=== PATIENT | female | born 1995 | race Caucasian/White ===

== ENCOUNTER 2020-01-09 23:13 | Emergency (ER) | payer BC ==
[2020-01-09 23:25] VITALS: RESP 18
[2020-01-09 23:56] LABS: Appearance,Urine Cloudy (Clear); Bacteria,Urine Rare /hpf; Bilirubin,Urine 1+ (Negative); Blood,Urine Negative (Negative); Color,Urine Dark Brown; Glucose,Urine (UA) Negative (Negative); Ketones,Urine Negative (Negative); Leukocyte Esterase,Urine Negative (Negative); Mucus,Urine Rare /hpf; Nitrite,Urine Positive (Negative); PH, Urine 7.5 (5.0-8.0); Protein,Urine Negative (Negative); RBC,Urine 2 /hpf (0-5); Specific Gravity,Urine 1.009 (1.001-1.035); Squamous Epithelial Cell,Urine 7 /hpf (0-4); WBC,Urine 10 /hpf (0-5)
--- NOTE | 2020-01-10 00:07 | ED ---
General Adult HPI - General Chief complaint: Recheck/Abnormal Lab/Rx Stated complaint: Back Pain, UTI Time Seen by Provider: 01/09/20 23:28 Source: patient Mode of arrival: ambulatory Limitations: no limitations - History of Present Illness Initial comments: This patient is 24-year-old woman who presents to be evaluated for a constellation of symptoms that includes low back pain, some dysuria, fevers and chills. She states her symptoms had started approximately a week ago. Symptoms were mild at first and she was working and not able to get in to be seen. She had been taking Azo which did help with these symptoms a little bit. She was seen in the clinic yesterday, told that she had urinary tract infection, and given prescription for Macrobid. She was able to get the prescription filled this morning and has taken one dose of the medication. She states that she is feeling just as bad and therefore presents for reevaluation here. -: days(s) Location: back Quality: aching Consistency: constant Improves with: none Worsens with: none Associated Symptoms: fever/chills Treatments Prior to Arrival: other - Related Data Previous Rx's Medication Instructions Recorded Cephalexin [Keflex] 500 mg PO Q6HR #28 cap 01/10/20 Allergies Allergy/AdvReac Type Severity Reaction Status Date / Time No Known Allergies Allergy Verified 01/09/20 23:25 Review of Systems ROS Statement: Those systems with pertinent positive or pertinent negative responses have been documented in the HPI. ROS Other: All systems not noted in ROS Statement are negative. Constitutional: Reports: fever, chills ENT: Denies: throat pain, congestion Respiratory: Denies: cough, dyspnea Cardiovascular: Denies: chest pain, palpitations Gastrointestinal: Denies: abdominal pain, nausea, vomiting, diarrhea, constipation Genitourinary: Reports: urgency, dysuria, frequency. Denies: hematuria, abnormal menses Musculoskeletal: Reports: back pain Skin: Denies: rash Neurological: Denies: headache, weakness, numbness Past Medical History Past Medical History: No Reported History History of Any Multi-Drug Resistant Organisms: None Reported Past Surgical History: Tonsillectomy Smoking Status: Current some day smoker Past Alcohol Use History: Occasional Past Drug Use History: None Reported General Exam Limitations: no limitations General appearance: alert, in no apparent distress Head exam: Present: atraumatic, normocephalic Eye exam: Present: normal appearance. Absent: scleral icterus, conjunctival injection ENT exam: Present: normal oropharynx Neck exam: Present: normal inspection Respiratory exam: Present: normal lung sounds bilaterally. Absent: respiratory distress, wheezes, rales, rhonchi, stridor Cardiovascular Exam: Present: regular rate, normal rhythm, normal heart sounds. Absent: systolic murmur, diastolic murmur, rubs, gallop GI/Abdominal exam: Present: soft. Absent: distended, tenderness, guarding, rebound, rigid, mass Extremities exam: Present: normal inspection, normal capillary refill. Absent: pedal edema, calf tenderness Back exam: Present: normal inspection. Absent: CVA tenderness (R), CVA tenderness (L), vertebral tenderness Neurological exam: Present: alert Skin exam: Present: warm, dry, intact, normal color. Absent: rash Course Vital Signs 01/09/20 01/10/20 23:21 00:57 Temperature 100.1 F H 101.6 F H Pulse Rate 104 H Respiratory 18 Rate Blood Pressure 122/80 O2 Sat by Pulse 99 Oximetry Medical Decision Making - Medical Decision Making Patient is a 24-year-old woman with fever, low back pain, urinary symptoms. The UA does show presence of 10 white blood cells, and this does not appear to be consistent with her degree of symptoms. I had discussion with her regarding possibility of STI mimicking urinary tract infection, and she does agree to getting the tests onto her urine and will take empiric Treatment. - Lab Data Result diagrams: 01/10/20 00:53 01/10/20 00:53 Lab Results 01/09/20 01/09/20 01/10/20 Range/Units 23:28 23:28 00:53 WBC 11.9 H (3.8-10.6) k/uL RBC 3.72 L (3.80-5.40) m/uL Hgb 11.6 (11.4-16.0) gm/dL Hct 34.3 (34.0-46.0) % MCV 92.2 (80.0-100.0) fL MCH 31.2 (25.0-35.0) pg MCHC 33.8 (31.0-37.0) g/dL RDW 12.0 (11.5-15.5) % Plt Count 228 (150-450) k/uL Neutrophils % 75 % Lymphocytes % 13 % Monocytes % 8 % Eosinophils % 1 % Basophils % 1 % Neutrophils # 8.9 H (1.3-7.7) k/uL Lymphocytes # 1.6 (1.0-4.8) k/uL Monocytes # 0.9 (0-1.0) k/uL Eosinophils # 0.1 (0-0.7) k/uL Basophils # 0.1 (0-0.2) k/uL Sodium (137-145) mmol/L Potassium (3.5-5.1) mmol/L Chloride (98-107) mmol/L Carbon Dioxide (22-30) mmol/L Anion Gap mmol/L BUN (7-17) mg/dL Creatinine (0.52-1.04) mg/dL Est GFR (CKD-EPI)AfAm (>60 ml/min/1.73 sqM) Est GFR (CKD-EPI)NonAf (>60 ml/min/1.73 sqM) Glucose (74-99) mg/dL Calcium (8.4-10.2) mg/dL Total Bilirubin (0.2-1.3) mg/dL AST (14-36) U/L ALT (4-34) U/L Alkaline Phosphatase (38-126) U/L C-Reactive Protein (<10.0) mg/L Total Protein (6.3-8.2) g/dL Albumin (3.5-5.0) g/dL Urine Color Dark Brown Urine Appearance Cloudy H (Clear) Urine pH 7.5 (5.0-8.0) Ur Specific Grover 1.009 (1.001-1.035) Urine Protein Negative (Negative) Urine Glucose (UA) Negative (Negative) Urine Ketones Negative (Negative) Urine Blood Negative (Negative) Urine Nitrite Positive H (Negative) Urine Bilirubin 1+ H (Negative) Urine Urobilinogen 4.0 (<2.0) mg/dL Ur Leukocyte Esterase Negative (Negative) Urine RBC 2 (0-5) /hpf Urine WBC 10 H (0-5) /hpf Ur Squamous Epith Cells 7 H (0-4) /hpf Urine Bacteria Rare H (None) /hpf Urine Mucus Rare H (None) /hpf Urine HCG, Qual Not Detected (Not Detectd) 09/14/20 Range/Units 00:53 WBC (3.8-10.6) k/uL RBC (3.80-5.40) m/uL Hgb (11.4-16.0) gm/dL Hct (34.0-46.0) % MCV (80.0-100.0) fL MCH (25.0-35.0) pg MCHC (31.0-37.0) g/dL RDW (11.5-15.5) % Plt Count (150-450) k/uL Neutrophils % % Lymphocytes % % Monocytes % % Eosinophils % % Basophils % % Neutrophils # (1.3-7.7) k/uL Lymphocytes # (1.0-4.8) k/uL Monocytes # (0-1.0) k/uL Eosinophils # (0-0.7) k/uL Basophils # (0-0.2) k/uL Sodium 132 L (137-145) mmol/L Potassium 3.8 (3.5-5.1) mmol/L Chloride 99 (98-107) mmol/L Carbon Dioxide 26 (22-30) mmol/L Anion Gap 7 mmol/L BUN 8 (7-17) mg/dL Creatinine 0.56 (0.52-1.04) mg/dL Est GFR (CKD-EPI)AfAm >90 (>60 ml/min/1.73 sqM) Est GFR (CKD-EPI)NonAf >90 (>60 ml/min/1.73 sqM) Glucose 102 H (74-99) mg/dL Calcium 8.5 (8.4-10.2) mg/dL Total Bilirubin 0.8 (0.2-1.3) mg/dL AST 83 H (14-36) U/L ALT 128 H (4-34) U/L Alkaline Phosphatase 152 H (38-126) U/L C-Reactive Protein 179.9 H (<10.0) mg/L Total Protein 6.3 (6.3-8.2) g/dL Albumin 3.3 L (3.5-5.0) g/dL Urine Color Urine Appearance (Clear) Urine pH (5.0-8.0) Ur Specific Grover (1.001-1.035) Urine Protein (Negative) Urine Glucose (UA) (Negative) Urine Ketones (Negative) Urine Blood (Negative) Urine Nitrite (Negative) Urine Bilirubin (Negative) Urine Urobilinogen (<2.0) mg/dL Ur Leukocyte Esterase (Negative) Urine RBC (0-5) /hpf Urine WBC (0-5) /hpf Ur Squamous Epith Cells (0-4) /hpf Urine Bacteria (None) /hpf Urine Mucus (None) /hpf Urine HCG, Qual (Not Detectd) Disposition Clinical Impression: Pyelonephritis Disposition: HOME SELF-CARE Condition: Fair Prescriptions: Cephalexin [Keflex] 500 mg PO Q6HR #28 cap Is patient prescribed a controlled substance at d/c from ED?: No Referrals: Celestino Cano MD [Primary Care Provider] - 1-2 days
[2020-01-10] MEDS ORDERED: cefTRIAXone 250 MG VIAL IM STA (00:21)
[2020-01-10] MEDS ORDERED: AZITHROMYCIN 250 MG TAB PO STA (00:21)
[2020-01-10 01:20] LABS: Basophils # (A) 0.1 k/uL (0-0.2); Basophils % (A) 1 %; Eosinophils # (A) 0.1 k/uL (0-0.7); Eosinophils % (A) 1 %; HCT 34.3 % (34.0-46.0); HGB 11.6 gm/dL (11.4-16.0); Lymphocytes # (A) 1.6 k/uL (1.0-4.8); Lymphocytes % (A) 13 %; MCH 31.2 pg (25.0-35.0); MCHC 33.8 g/dL (31.0-37.0); MCV 92.2 fL (80.0-100.0); Mean Platelet Volume 8.8; Monocytes # (A) 0.9 k/uL (0-1.0); Monocytes % (A) 8 %; Neutrophils # (A) 8.9 k/uL (1.3-7.7); Neutrophils % (A) 75 %; Platelet Count 228 k/uL (150-450); RBC 3.72 m/uL (3.80-5.40); WBC 11.9 k/uL (3.8-10.6)
[2020-01-10] MEDS ORDERED: HYDROcodone/APAP 5-325MG 1 EACH TAB PO STA (01:24)
[2020-01-10] MEDS ORDERED: SODIUM CHLORIDE 0.9% 1,000 ML IV ONE (01:24)
[2020-01-10] MEDS ORDERED: ACETAMINOPHEN TAB 325 MG TAB PO STA (01:24)
[2020-01-10 01:38] LABS: ALT 128 U/L (4-34); AST 83 U/L (14-36); African American GFR (CKD) >90 (>60 ml/min/1.73 sqM); Albumin 3.3 g/dL (3.5-5.0); Alkaline Phosphatase 152 U/L (38-126); Anion Gap 7 mmol/L; Blood Urea Nitrogen 8 mg/dL (7-17); Calcium 8.5 mg/dL (8.4-10.2); Carbon Dioxide 26 mmol/L (22-30); Chloride 99 mmol/L (98-107); Glucose 102 mg/dL (74-99); Non-African American GFR(CKD) >90 (>60 ml/min/1.73 sqM); Potassium 3.8 mmol/L (3.5-5.1); Sodium 132 mmol/L (137-145); Total Bilirubin 0.8 mg/dL (0.2-1.3); Total Protein 6.3 g/dL (6.3-8.2)
[2020-01-10 01:56] LABS: C Reactive Protein 179.9 mg/L (<10.0)
--- NOTE | 2020-01-10 02:57 | CT ---
EXAMINATION TYPE: CT abdomen pelvis w con DATE OF EXAM: 01/10/2020 COMPARISON: None HISTORY: Pelvic Pain CT DLP: 695.6 mGycm Automated exposure control for dose reduction was used. CONTRAST: Performed with IV Contrast, patient injected with 100 mL of Isovue 300. Lung bases are clear. There is no pleural effusion. Heart size is normal. There is no pericardial eff usion. There is small hiatal hernia. Liver spleen pancreas gallbladder appear normal. Bile ducts are not dil ated. Gallbladder is contracted. There is no adrenal mass. There is some heterogeneous enhancement of the right kidney. Right kidney i s larger than the left. Delayed images show patchy areas of decreased enhancement in the right renal cortex. There is also to centimeter focus of decreased enhancement posterior lower pole left kidney. There is no retroperitoneal adenopathy. Ureters are not dilated. Delayed images show normal renal exc retion. Bladder distends smoothly. There is no inguinal hernia. There is 5 x 3 cm fluid collection in the pel vis on the right side that could be ovarian cyst. Uterus is anteverted. There is 4 cm cystic fluid co llection in the pelvis anterior to the uterine fundus. There is no mesenteric edema. There is no ascites or free air. Appendix is posterior and appears norm al. There is no evidence of a bowel obstruction. The lumbar spine is intact. There is no compression fracture. Bony pelvis is intact. IMPRESSION: Patchy areas of decreased enhancement in both kidneys and more on the right side consistent with mult iple foci of pyelonephritis. No renal obstruction. Cystic pelvic masses consistent with bilateral ovarian cysts.
[2020-01-10] MEDS ORDERED: ACET/COD 300 MG/30 MG STARTER PACK 6 TAB BTL PO STA (03:15)
[2020-01-10 03:27] VITALS: BP 105/60; PULSE 80; TEMP 98.3
[2020-01-11 07:17] LABS: C. trachomatis,PCR Negative (Neg,Equiv); Chlamydia trachomatis Source Urine; N. gonorrhoeae,PCR Negative (Neg,Equiv); Neisseria Source Urine
== END 2020-01-10 03:47 | disposition home or self-care (01) ==
LOC: EC 23:13
DX: N12 Tubulo-interstitial nephritis, not specified as acute or chronic (principal); F17.200 Nicotine dependence, unspecified, uncomplicated
CPT/HCPCS: 36415; 80053; 85025; 86140; 81001; 81025; 87491; 87591; 74177; 99284; 96360; 96372; J0696; Q9967

== ENCOUNTER 2020-11-15 20:57 | Inpatient (IN) | payer BC ==
--- NOTE | 2020-11-16 00:37 | ED ---
Psych HPI - General Chief Complaint: Psychiatric Symptoms Stated Complaint: Mental Health Time Seen by Provider: 11/15/20 21:10 Source: patient, RN notes reviewed, old records reviewed Mode of arrival: ambulatory - History of Present Illness Initial Comments: This is a 21-year-old female to the ER for evaluation, patient has history of meth abuse coming in for suicidal thoughts severe compression, patient has severe depression but does not want to speak about MD Complaint: suicidal ideation, feels depressed -: days(s) Associated Psychiatric Symptoms: depression, suicidal ideation History of same: Yes Quality: constant Improves With: none Worsens With: none Context: not taking psychiatric medications, significant life stressor Associated Symptoms: denies other symptoms Treatments Prior to Arrival: placed on mental health hold If Self Harm: admits thoughts of self harm - Related Data Home Medications Medication Instructions Recorded Confirmed No Known Home Medications 11/15/20 11/15/20 Allergies Allergy/AdvReac Type Severity Reaction Status Date / Time No Known Allergies Allergy Verified 11/15/20 21:22 Review of Systems ROS Statement: Those systems with pertinent positive or pertinent negative responses have been documented in the HPI. ROS Other: All systems not noted in ROS Statement are negative. Past Medical History Past Medical History: No Reported History History of Any Multi-Drug Resistant Organisms: None Reported Past Surgical History: Tonsillectomy Past Psychological History: Anxiety, PTSD Smoking Status: Current every day smoker Past Alcohol Use History: Occasional Past Drug Use History: Heroin, Marijuana, Methamphetamine General Exam Limitations: no limitations General appearance: alert, in no apparent distress Head exam: Present: atraumatic, normocephalic, normal inspection Eye exam: Present: normal appearance, PERRL, EOMI. Absent: scleral icterus, conjunctival injection, periorbital swelling ENT exam: Present: normal exam, mucous membranes moist Neck exam: Present: normal inspection. Absent: tenderness, meningismus, lymphadenopathy Respiratory exam: Present: normal lung sounds bilaterally. Absent: respiratory distress, wheezes, rales, rhonchi, stridor Cardiovascular Exam: Present: regular rate, normal rhythm, normal heart sounds. Absent: systolic murmur, diastolic murmur, rubs, gallop, clicks GI/Abdominal exam: Present: soft, normal bowel sounds. Absent: distended, tenderness, guarding, rebound, rigid Extremities exam: Present: normal inspection, full ROM, normal capillary refill. Absent: tenderness, pedal edema, joint swelling, calf tenderness Back exam: Present: normal inspection Neurological exam: Present: alert, oriented X3, CN II-XII intact Psychiatric exam: Present: normal affect, normal mood Skin exam: Present: warm, dry, intact, normal color. Absent: rash Course Vital Signs 11/15/20 20:58 Temperature 97.9 F Pulse Rate 89 Respiratory 18 Rate Blood Pressure 120/82 O2 Sat by Pulse 100 Oximetry - Reevaluation(s) Reevaluation #1: 11/16/20 01:10 Medical record is reviewed Reevaluation #2: 11/16/20 01:10 Medically clear psychiatric evaluation Medical Decision Making - Medical Decision Making 24 female DF for psychiatric evaluation severely depressed, patient was seen by psychiatry will be admitted for psychiatric evaluation Disposition Clinical Impression: Acute psychosis, Depression, Suicidal ideation Disposition: TRANSFER TO PSYCH HOSP/UNIT Condition: Fair Is patient prescribed a controlled substance at d/c from ED?: No
[2020-11-16] MEDS ORDERED: MAG HYDROX/AL HYDROX/SIMETH 30 ML CUP PO PRN (00:57)
[2020-11-16] MEDS ORDERED: ACETAMINOPHEN TAB 325 MG TAB PO PRN (00:57)
[2020-11-16] MEDS ORDERED: MAGNESIUM HYDROXIDE 2,400 MG/10 ML CUP PO PRN (00:57)
[2020-11-16] MEDS ORDERED: HALOPERIDOL LACTATE 5 MG/ML 1 ML VIAL IM PRN (00:57)
[2020-11-16] MEDS ORDERED: LORazepam 2 MG/ML INJ IM PRN (00:57)
[2020-11-16] MEDS: LORazepam 1 MG TAB PO PRN ×2 (02:06→17:51)
[2020-11-16] MEDS: NICOTINE 21MG/24HR PATCH TRANSDERM SCH (09:35)
[2020-11-16] MEDS ORDERED: FLUoxetine HCL 20 MG CAP PO STA (12:03)
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
[2020-11-16] MEDS: QUEtiapine 50 MG TAB PO SCH (20:33)
[2020-11-16] MEDS: cloNIDine HCL 0.1 MG TAB PO SCH (20:33)
[2020-11-17] MEDS: NICOTINE 21MG/24HR PATCH TRANSDERM SCH (08:22)
[2020-11-17] MEDS: cloNIDine HCL 0.1 MG TAB PO SCH ×2 (08:22→21:50)
[2020-11-17] MEDS ORDERED: FLUoxetine HCL 20 MG CAP PO SCH (09:00)
--- NOTE | 2020-11-17 11:58 | P.PN ---
Progress Note - Text Progress Note Date: 11/17/20 Interval History: Patient was seen resting in bed and refused to get out of bed to speak with the newswriter. Patient appears to be quite somnolent today. She does answer questions but is very minimal responses. She does deny any suicidal or homicidal ideation, intention, and/or plan today. She reports no auditory or visual hallucinations. She denies any issues with appetite. She reports no side effects of medication has been adherent. The patient denies any acute issues but remains isolative to herself in bed. She has not attended groups or participate in milieu activities. Mental Status Exam: General Appearance: Patient appears to be stated age is alert, directable, but uncooperative. Appears disheveled. Behavior: Patient is lying in bed and is refusing to get up. She is quite somnolent. Speech: Minimal, low in volume, one-word replies. Nonspontaneous. Mood/Affect: Mood is tired. Affect is congruent and somnolent. Suicidality/Homicidality: Patient denies having any suicidal or homicidal ideation intent or plan. Perceptions: Patient denies any visual hallucinations and denies any auditory hallucinations Though content/process: There is no evidence of any delusional thought content and thought process is linear and goal-directed. Memory and concentration: AOX3, grossly intact for the purposes of this session Judgment and insight: Poor Vital Signs Temp 97.5 F L 11/17/20 06:39 Pulse 113 H 11/17/20 08:22 Resp 18 11/17/20 06:39 BP 122/73 11/17/20 08:22 Pulse Ox 97 11/16/20 02:06 Assessment Major depressive disorder Posttraumatic stress disorder Methamphetamine use disorder Plan: -Patient continues to meet criteria for inpatient psychiatric admission for symptom stabilization and safety. Second clinical certificate has been filled out yesterday and followed for court. -Medications: Increase Prozac to 30 mg by mouth daily for depression/anxiety/PTSD - may titrate this medication over the weekend Continue Catapres 0.1 mg by mouth twice a day for PTSD/acute withdrawal Continue Seroquel 50 mg by mouth at bedtime for insomnia/mins stabilization - may titrate this medication over the weekend -When necessary Ativan and Haldol for agitation/aggression. -NRT - nicotine patch -SW on board for discharge planning. Encouraged the patient to participate in milieu.
[2020-11-17] MEDS: LORazepam 1 MG TAB PO PRN ×2 (18:16→22:24)
[2020-11-17] MEDS: QUEtiapine 50 MG TAB PO SCH (21:50)
[2020-11-18] MEDS: NICOTINE 21MG/24HR PATCH TRANSDERM SCH (08:47)
[2020-11-18] MEDS: FLUoxetine HCL 10 MG CAP PO SCH (08:48)
[2020-11-18] MEDS: cloNIDine HCL 0.1 MG TAB PO SCH ×2 (08:48→21:25)
[2020-11-18] MEDS: LORazepam 1 MG TAB PO PRN ×2 (11:18→21:25)
[2020-11-18 14:09] LABS: Appearance,Urine Clear (Clear); Bacteria,Urine Rare /hpf; Bilirubin,Urine Negative (Negative); Blood,Urine Negative (Negative); Color,Urine Light Yellow; Glucose,Urine (UA) Negative (Negative); Ketones,Urine Negative (Negative); Leukocyte Esterase,Urine Small (Negative); Mucus,Urine Rare /hpf; Nitrite,Urine Positive (Negative); Protein,Urine Negative (Negative); RBC,Urine 1 /hpf (0-5); Specific Gravity,Urine 1.007 (1.001-1.035); Squamous Epithelial Cell,Urine 1 /hpf (0-4); Urobilinogen,Urine <2.0 mg/dL (<2.0); WBC,Urine 8 /hpf (0-5)
[2020-11-18] MEDS: haloperidoL 5 MG TAB PO PRN (15:03)
--- NOTE | 2020-11-18 17:05 | P.PN ---
Progress Note - Text Progress Note Date: 11/18/20 Interval History: Patient requested to be seen bedside. This is a 25-year-old female. She was admitted due to having thoughts of suicide. Currently she is being treated for depression, PTSD and methamphetamine use disorder. Patient reported feeling tired also she said she slept well last night. She states her depression is getting better. She states her suicidal thinking is lessening. She denies any suicidal or homical ideations, intent or plan. Patient denies any auditory, visual hallucinations and denies any paranoia or delusions. Patient denies any side effects from the medications and has been compliant with meds. Mental Status Exam: General Appearance: Patient appears to be stated age is alert, directable, and partially cooperative. Behavior: Patient is calmly seated without any agitated behavior. Speech: Patient's speech is fluent and nonpressured. Mood/Affect: Mood is improving mildly, affect is congruent and constricted. Suicidality/Homicidality: Patient denies having any suicidal or homicidal ideation intent or plan. Perceptions: Patient denies any visual hallucinations and denies any auditory hallucinations Though content/process: There is no evidence of any delusional thought content and thought process is linear and goal-directed. Memory and concentration: AOX3, grossly intact for the purposes of this session Judgment and insight: Improving mildly Assessment Major depressive disorder Posttraumatic stress disorder Methamphetamine use disorder Plan: -Patient continues to meet criteria for inpatient psychiatric admission for symptom stabilization and safety. -Medications: Continue current medications without any changes and monitor which included Prozac, Catapres and Seroquel. -When necessary Ativan and Haldol for agitation/aggression. -NRT - nicotine patch -SW on board for discharge planning. Encouraged the patient to participate in milieu. Currently awaiting deferral with erisa attorney and court date.
[2020-11-18 17:40] LABS: Urine Alcohol Negative (Negative); Urine Barbiturate Negative (Negative); Urine Cocaine Negative (Negative); Urine Methadone Negative (Negative); Urine Opiates Negative (Negative); Urine Phencyclidine Negative (Negative)
--- NOTE | 2020-11-18 20:22 | P.CONS ---
History of Present Illness - Reason for Consult Consult date: 11/18/20 - History of Present Illness The patient was seen with the mental health unit RN. I was never alone with the patient. The patient is a 25-year-old female with a PMH of methamphetamine abuse, tobacco abuse, and psychosis who presented to the emergency room with complaints of auditory and visual hallucinations. The patient was admitted with mental health unit where she was seen and evaluated. She reports feeling somewhat better since admission. She reports last using methamphetamine week prior to presentation. She notes that she is trying to quit but does not wish to go to a rehab at this time. She also reports smoking 1 pack of cigarettes daily for the past 5 years. She also reported some left tooth pain after one of the teeth fell out about a week ago. Denied any additional substance abuse. Denied any a dditional physical complaints. Denied chest discomfort, shortness of breath without fever, dysuria, chills, cough. Denied abdominal pain, nausea, vomiting. Denied weakness, numbness, tingling, headache. Urine tox in the emergency room was negative. Review of systems: Pertinent positives and negatives as discussed in HPI, a complete review of systems was performed and all other systems are negative. Physical examination: General: non toxic, no distress, appears at stated age, normal weight Derm: no unusual rashes/lesions no unusual ecchymoses, warm, dry Head: atraumatic, normocephalic, symmetric Eyes: EOMI, no lid lag, anicteric sclera, pupils equal round reactive to light ENT: Nose and ears atraumatic, no thrush, no pharyngeal erythema Mouth: no lip lesion, mucus membranes moist, poor dentition, left lower molar with tooth decay without surrounding gingivitis Cardiovascular: S1S2 reg, no murmur, positive posterior tibial pulse bilateral, no edema, capillary refill less than 2 seconds Lungs: CTA bilateral, no rhonchi, no rales , no accessory muscle use Abdominal: soft, nontender to palpation, no guarding, no appreciable organomegaly, normal bowel sounds Ext: no gross muscle atrophy, muscle strength 5 out of 5 in all 4 extremities grossly, no contractures, Neuro: CN II-XI grossly intact, light touch intact all 4 extremities, finger to nose within normal limits, Psych: Alert, oriented, flat affect Assessment/plan Methamphetamine, tobacco abuse -Strongly advised on importance of cessation -Nicotine patch as needed -Monitor for signs of withdrawal Psychosis -As per psychiatry Abnormal UA -The patient is denying urinary complaints -Likely colonization Left molar tooth pain -Patient currently afebrile without surrounding gingivitis -Advised to follow-up with her dentist following discharge Thank you for allowing us to participate in the care of this patient. We will follow peripherally. Do not hesitate to contact us with questions. Someone can be reached from the [facility] hospitalist group at all hours of the day at [phone]. Past Medical History Past Medical History: No Reported History History of Any Multi-Drug Resistant Organisms: None Reported Past Surgical History: Tonsillectomy Smoking Status: Current every day smoker - Past Family History Mother Family Medical History: GERD/Reflux Medications and Allergies Home Medications Medication Instructions Recorded Confirmed Type No Known Home Medications 11/15/20 11/15/20 History Allergies Allergy/AdvReac Type Severity Reaction Status Date / Time No Known Allergies Allergy Verified 11/15/20 21:22 Physical Exam Vitals: Vital Signs Temp Pulse Resp BP 11/18/20 08:47 96 20 101/64 11/18/20 06:32 98.0 F 61 16 96/53 Results Labs: Abnormal Lab Results - Last 24 Hours (Table) 11/18/20 Range/Units 13:41 Urine Nitrite Positive H (Negative) Ur Leukocyte Esterase Small H (Negative) Urine WBC 8 H (0-5) /hpf Urine Bacteria Rare H (None) /hpf Urine Mucus Rare H (None) /hpf
[2020-11-18] MEDS: QUEtiapine 50 MG TAB PO SCH (21:25)
[2020-11-19] MEDS: FLUoxetine HCL 10 MG CAP PO SCH (09:01)
[2020-11-19] MEDS: NICOTINE 21MG/24HR PATCH TRANSDERM SCH (09:01)
[2020-11-19] MEDS: cloNIDine HCL 0.1 MG TAB PO SCH ×2 (09:01→20:04)
--- NOTE | 2020-11-19 12:40 | P.PN ---
Progress Note - Text Progress Note Date: 11/19/20 Interval History: Patient requested to be seen bedside. This is a 25-year-old female. She was admitted due to having thoughts of suicide. Currently she is being treated for depression, PTSD and methamphetamine use disorder. Patient reported feeling somewhat better. She states her depression is getting better. She is adjusting to her medications. she said she slept well last night. She states her suicidal thinking is gone. She denies any suicidal or homical ideations, intent or plan. Patient denies any auditory, visual hallucinations and denies any paranoia or delusions. Patient denies any side effects from the medications and has been compliant with meds. Mental Status Exam: General Appearance: Patient appears to be stated age is alert, directable, and partially cooperative. Behavior: Patient is calmly seated without any agitated behavior. Speech: Patient's speech is fluent and nonpressured. Mood/Affect: Mood is improving mildly, affect is congruent and constricted. Suicidality/Homicidality: Patient denies having any suicidal or homicidal ideation intent or plan. Perceptions: Patient denies any visual hallucinations and denies any auditory hallucinations Though content/process: There is no evidence of any delusional thought content and thought process is linear and goal-directed. Memory and concentration: AOX3, grossly intact for the purposes of this session Judgment and insight: Improving mildly Assessment Major depressive disorder Posttraumatic stress disorder Methamphetamine use disorder Plan: -Patient continues to meet criteria for inpatient psychiatric admission for symptom stabilization and safety. -Medications: Continue current medications without any changes and monitor which included Prozac, Catapres and Seroquel. -When necessary Ativan and Haldol for agitation/aggression. -NRT - nicotine patch -SW on board for discharge planning. Encouraged the patient to participate in milieu. Currently awaiting deferral with staff attorney and court date.
[2020-11-19] MEDS: QUEtiapine 50 MG TAB PO SCH (20:04)
[2020-11-20] MEDS: cloNIDine HCL 0.1 MG TAB PO SCH ×3 (09:18→20:13)
[2020-11-20] MEDS: FLUoxetine HCL 10 MG CAP PO SCH (09:18)
[2020-11-20] MEDS: NICOTINE 21MG/24HR PATCH TRANSDERM SCH (09:18)
[2020-11-20 09:31] VITALS: BP 92/54; PULSE 78; RESP 16; TEMP 98.9
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
[2020-11-20] MEDS: LORazepam 1 MG TAB PO PRN (17:13)
[2020-11-20] MEDS: haloperidoL 5 MG TAB PO PRN (19:08)
[2020-11-20] MEDS: QUEtiapine 50 MG TAB PO SCH (20:13)
[2020-11-21] MEDS: cloNIDine HCL 0.1 MG TAB PO SCH (08:48)
[2020-11-21] MEDS ORDERED: FLUoxetine HCL 20 MG CAP PO SCH (09:00)
[2020-11-21] MEDS: NICOTINE 21MG/24HR PATCH TRANSDERM SCH (09:10)
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
== END 2020-11-21 14:38 | disposition home or self-care (01) | DRG 885 ==
LOC: EC 20:57 → 3MHU 11-16 00:55
PROVIDERS: ADMIT Psychiatry & Neurology Psychiatry; ATTEND Psychiatry & Neurology Psychiatry
DX: F33.2 Major depressive disorder, recurrent severe without psychotic features (principal); R45.851 Suicidal ideations; F23 Brief psychotic disorder; F15.10 Other stimulant abuse, uncomplicated; F43.10 Post-traumatic stress disorder, unspecified; F41.9 Anxiety disorder, unspecified; F17.210 Nicotine dependence, cigarettes, uncomplicated; R45.850 Homicidal ideations; G47.00 Insomnia, unspecified; K08.89 Other specified disorders of teeth and supporting structures; Z79.899 Other long term (current) drug therapy
CPT/HCPCS: 80306; 81001; 81025; 82075; 99285

== ENCOUNTER 2023-04-15 19:29 | Emergency (ER) | payer BC, OTHER ==
[2023-04-15 19:54] VITALS: BP 122/82; PULSE 88; RESP 18; TEMP 98.2
[2023-04-15] MEDS ORDERED: Acetaminophen-Codeine 300-30mg TAB PO STA (20:34)
[2023-04-15] MEDS ORDERED: ACET/COD 300 MG/30 MG STARTER PACK 6 TAB BTL PO STA (20:34)
[2023-04-15] MEDS ORDERED: AMOXIC-POT CLAV 875-125MG 1 EACH TAB PO STA (20:34)
[2023-04-15] MEDS ORDERED: KETOROLAC 15 MG/ML 1 ML VIAL IM STA (20:34)
--- NOTE | 2023-04-15 20:36 | ED ---
General Adult HPI - General Chief complaint: Dental/Oral Stated complaint: Dental Pain Time Seen by Provider: 04/15/23 20:22 Source: patient, RN notes reviewed Mode of arrival: ambulatory Limitations: no limitations - History of Present Illness Initial comments: 27 year old female presents to the emergency department for evaluation of lower left dental pain. Patient does have a fractured tooth and states that it is been bothering her for the past 2-3 days. She has not noted any drainage from the area. She states that she has been attempting to get into her dentist without success. She denies fever, chills, nausea, vomiting. - Related Data Previous Rx's Medication Instructions Recorded Nicotine 21Mg/24Hr Patch [Habitrol] 1 patch TRANSDERM DAILY 30 Days 11/20/20 patch QUEtiapine [SEROquel] 50 mg PO HS 30 Days tab 11/20/20 cloNIDine HCL [Catapres] 0.1 mg PO BID 30 Days tab 11/20/20 FLUoxetine HCL [PROzac] 40 mg PO DAILY 30 Days cap 11/21/20 Amoxic-Pot Clav 875-125Mg 1 tab PO Q12HR #20 tab 04/16/23 [Augmentin 875-125] Allergies Allergy/AdvReac Type Severity Reaction Status Date / Time No Known Allergies Allergy Verified 11/15/20 21:22 Review of Systems ROS Statement: Those systems with pertinent positive or pertinent negative responses have been documented in the HPI. ROS Other: All systems not noted in ROS Statement are negative. Past Medical History Past Medical History: No Reported History History of Any Multi-Drug Resistant Organisms: None Reported Past Surgical History: Tonsillectomy Past Psychological History: Anxiety, Depression, PTSD Smoking Status: Current every day smoker - Past Family History Mother Family Medical History: GERD/Reflux General Exam Limitations: no limitations General appearance: alert, in no apparent distress Head exam: Present: atraumatic, normocephalic, normal inspection Eye exam: Present: normal appearance, PERRL, EOMI. Absent: scleral icterus, conjunctival injection, periorbital swelling ENT exam: Present: normal oropharynx, other (Fractured tooth in the left lower dentition, dental caries present, no visible abscess, airway patent, floor of mouth unremarkable) Neck exam: Present: normal inspection. Absent: tenderness, meningismus, lymphadenopathy Respiratory exam: Present: normal lung sounds bilaterally. Absent: respiratory distress, wheezes, rales, rhonchi, stridor Cardiovascular Exam: Present: regular rate, normal rhythm, normal heart sounds. Absent: systolic murmur, diastolic murmur, rubs, gallop, clicks Neurological exam: Present: alert, oriented X3 Psychiatric exam: Present: normal affect, normal mood Skin exam: Present: warm, dry, intact, normal color. Absent: rash Course Vital Signs 04/15/23 19:40 Temperature 98.2 F Pulse Rate 88 Respiratory 18 Rate Blood Pressure 122/82 O2 Sat by Pulse 98 Oximetry Medical Decision Making - Medical Decision Making Was pt. sent in by a medical professional or institution (, PA, ONLINE JOURNALIST, urgent care, hospital, or prison...) When possible be specific @ -No Did you speak to anyone other than the patient for history (EMS, parent, family, police, friend...)? What history was obtained from this source @ -No Did you review nursing and triage notes (agree or disagree)? Why? @ -I reviewed and agree with nursing and triage notes Were old charts reviewed (outside hosp., previous admission, EMS record, old EKG, old radiological studies, urgent care reports/EKG's, prison records)? Report findings @ -No old charts were reviewed Differential Diagnosis (chest pain, altered mental status, abdominal pain women, abdominal pain men, vaginal bleeding, weakness, fever, dyspnea, syncope, headache, dizziness, GI bleed, back pain, seizure, CVA, palpatations, mental health, musculoskeletal)? @ -dental infection, dental abscess, dental appliance issue, parotiditis, strep throat, this list is not all inclusive EKG interpreted by me (3pts min.). @ -None X-rays interpreted by me (1pt min.). @ -None done CT interpreted by me (1pt min.). @ -None done U/S interpreted by me (1pt. min.). @ -None done What testing was considered but not performed or refused? (CT, X-rays, U/S, labs)? Why? @ -None What meds were considered but not given or refused? Why? @ -None Did you discuss the management of the patient with other professionals (professionals i.e. , PA, ONLINE JOURNALIST, lab, RT, psych nurse, director of social work, cementing machine operator, teacher, armoured corps officer, case mgr)? Give summary @ -No Was smoking cessation discussed for >3mins.? @ -No Was critical care preformed (if so, how long)? @ -No Were there social determinants of health that impacted care today? How? (Homelessness, low income, unemployed, alcoholism, drug addiction, transportation, low edu. Level, literacy, decrease access to med. care, penitentiary, rehab)? @ -No Was there de-escalation of care discussed even if they declined (Discuss DNR or withdrawal of care, Hospice)? DNR status @ -No What co-morbidities impacted this encounter? (DM, HTN, Smoking, COPD, CAD, Cancer, CVA, ARF, Chemo, Hep., AIDS, mental health diagnosis, sleep apnea, morbid obesity)? @ -None Was patient admitted / discharged? Hospital course, mention meds given and route, prescriptions, significant lab abnormalities, going to OR and other pertinent info. @ -Discharged. Patient presented to the emergency department for dental pain. There is no visible abscess at this time. Patient will be started on Augmentin and given a Tylenol 3 starter pack. Patient given a dose of Toradol in the emergency department. Patient advised to follow-up with her dentist. Patient patient agreeable with plan. Patient stable to discharge. Case discussed with Dr. tavarez Undiagnosed new problem with uncertain prognosis? @ -No Drug Therapy requiring intensive monitoring for toxicity (Heparin, Nitro, Insulin, Cardizem)? @ -No Were any procedures done? @ -No Diagnosis/symptom? @ -dental infection Acute, or Chronic, or Acute on Chronic? @ -acute Uncomplicated (without systemic symptoms) or Complicated (systemic symptoms)? @ -uncomplicated Side effects of treatment? @ -No Exacerbation, Progression, or Severe Exacerbation? @ -No Poses a threat to life or bodily function? How? (Chest pain, USA, [place], pneumonia, PE, COPD, DKA, ARF, appy, cholecystitis, CVA, Diverticulitis, Homicidal, Suicidal, threat to staff... and all critical care pts) @ -No Disposition Clinical Impression: Fractured tooth, Acute pulpitis Disposition: HOME SELF-CARE Condition: Stable Instructions (If sedation given, give patient instructions): Toothache (ED) Additional Instructions: Please follow up with your dentist. press supervisor antibiotics and take to completion. Return to the emergency department for new or worsening symptoms. Prescriptions: Amoxic-Pot Clav 875-125Mg [Augmentin 875-125] 1 tab PO Q12HR #20 tab Is patient prescribed a controlled substance at d/c from ED?: No Referrals: None,Stated [Primary Care Provider] - 1-2 days
== END 2023-04-15 21:40 | disposition home or self-care (01) ==
LOC: EC 19:29
DX: S02.5XXA Fracture of tooth (traumatic), initial encounter for closed fracture (principal); K04.01 Reversible pulpitis; F17.200 Nicotine dependence, unspecified, uncomplicated; Z86.59 Personal history of other mental and behavioral disorders; X58.XXXA Exposure to other specified factors, initial encounter
CPT/HCPCS: 99283; 96372; J1885

== ENCOUNTER 2023-04-17 12:48 | Emergency (ER) | payer OTHER ==
[2023-04-17] MEDS ORDERED: HYDROcodone/APAP 5-325MG 1 EACH TAB PO STA (13:01)
[2023-04-17 13:02] VITALS: BP 134/81; PULSE 103; RESP 18; TEMP 97.6
[2023-04-17] MEDS ORDERED: ACET/COD 300 MG/30 MG STARTER PACK 6 TAB BTL PO STA (13:05)
--- NOTE | 2023-04-17 13:07 | ED ---
ENT HPI - General Chief complaint: Dental/Oral Stated complaint: dental pain Time Seen by Provider: 04/17/23 12:55 Source: patient, RN notes reviewed Mode of arrival: ambulatory Limitations: no limitations - History of Present Illness Initial comments: Patient is a 27-year-old female presented ER with chief complaint dental pain. Patient states she was recently seen here and prescribed Augmentin and was given a 3 day supply of [place]. Patient reports her face has had increased in swelling. Patient denies any drainage. Patient denies any fevers, chills, night sweats. Patient states she is out of her [place] and her pain is extreme. Patient has not been able to get into a dentist due to insurance issues. Patient denies any difficulty breathing or handling her own secretions. - Related Data Previous Rx's Medication Instructions Recorded Nicotine 21Mg/24Hr Patch [Habitrol] 1 patch TRANSDERM DAILY 30 Days 11/20/20 patch QUEtiapine [SEROquel] 50 mg PO HS 30 Days tab 11/20/20 cloNIDine HCL [Catapres] 0.1 mg PO BID 30 Days tab 11/20/20 FLUoxetine HCL [PROzac] 40 mg PO DAILY 30 Days cap 11/21/20 Amoxic-Pot Clav 875-125Mg 1 tab PO Q12HR #20 tab 04/16/23 [Augmentin 875-125] Allergies Allergy/AdvReac Type Severity Reaction Status Date / Time No Known Allergies Allergy Verified 11/15/20 21:22 Review of Systems ROS Statement: Those systems with pertinent positive or pertinent negative responses have been documented in the HPI. ROS Other: All systems not noted in ROS Statement are negative. Past Medical History Past Medical History: No Reported History History of Any Multi-Drug Resistant Organisms: None Reported Past Surgical History: Tonsillectomy Past Psychological History: Anxiety, Depression, PTSD Smoking Status: Current every day smoker - Past Family History Mother Family Medical History: GERD/Reflux General Exam Limitations: no limitations General appearance: alert, in no apparent distress ENT exam: Present: mucous membranes moist, other (broken 2nd molar on left side. No purulent drainage present. No drainable abscess. Patient's left cheek was swollen.) Neck exam: Present: normal inspection. Absent: tenderness, meningismus, lymphadenopathy Respiratory exam: Present: normal lung sounds bilaterally. Absent: respiratory distress, wheezes, rales, rhonchi, stridor Cardiovascular Exam: Present: regular rate, normal rhythm, normal heart sounds. Absent: systolic murmur, diastolic murmur, rubs, gallop, clicks Neurological exam: Present: alert, oriented X3, CN II-XII intact Psychiatric exam: Present: normal affect, normal mood Skin exam: Present: warm, dry, intact, normal color. Absent: rash Course Vital Signs 04/17/23 12:49 Temperature 97.6 F Pulse Rate 103 H Respiratory 18 Rate Blood Pressure 134/81 O2 Sat by Pulse 97 Oximetry Medical Decision Making - Medical Decision Making Was pt. sent in by a medical professional or institution (, PA, EVALUATOR TRANSFER STUDENTS, urgent care, hospital, or [facility]...) When possible be specific @ -No Did you speak to anyone other than the patient for history (EMS, parent, family, police, friend...)? What history was obtained from this source @ -No Did you review nursing and triage notes (agree or disagree)? Why? @ -I reviewed and agree with nursing and triage notes Were old charts reviewed (outside hosp., previous admission, EMS record, old EKG, old radiological studies, urgent care reports/EKG's, [facility] records)? Report findings @ -Yes, I reviewed ER visit from 04/15/23. Patient was prescribed Augmentin and [place]. Patient was advised to follow-up with dentist. Differential Diagnosis (chest pain, altered mental status, abdominal pain women, abdominal pain men, vaginal bleeding, weakness, fever, dyspnea, syncope, headache, dizziness, GI bleed, back pain, seizure, CVA, palpatations, mental health, musculoskeletal)? @ -Broken tooth, dental abscess, dental carry, cellulitis EKG interpreted by me (3pts min.). @ -None X-rays interpreted by me (1pt min.). @ -None done CT interpreted by me (1pt min.). @ -None done U/S interpreted by me (1pt. min.). @ -None done What testing was considered but not performed or refused? (CT, X-rays, U/S, labs)? Why? @ -None What meds were considered but not given or refused? Why? @ -None Did you discuss the management of the patient with other professionals (professionals i.e. , PA, EVALUATOR TRANSFER STUDENTS, lab, RT, psych nurse, socially responsible investment adviser, construction controller, teacher, chief clinical officer, bottle caser)? Give summary @ -No Was smoking cessation discussed for >3mins.? @ -No Was critical care preformed (if so, how long)? @ -No Were there social determinants of health that impacted care today? How? (Homelessness, low income, unemployed, alcoholism, drug addiction, transportati on, low edu. Level, literacy, decrease access to med. care, alf, rehab)? @ -No Was there de-escalation of care discussed even if they declined (Discuss DNR or withdrawal of care, Hospice)? DNR status @ -No What co-morbidities impacted this encounter? (DM, HTN, Smoking, COPD, CAD, Cancer, CVA, ARF, Chemo, Hep., AIDS, mental health diagnosis, sleep apnea, morbid obesity)? @ -None Was patient admitted / discharged? Hospital course, mention meds given and route, prescriptions, significant lab abnormalities, going to OR and other pertinent info. @ -Discharge. Patient is a 27-year-old female presented ER with chief complaint of dental pain. Upon examination, patient's vital signs are stable. Physical exam was significant for left cheek swelling. There is no drainable abscess present. There was a broken 2nd molar on inferior left side. Patient received PO [place] for pain control in the ER. I advised patient to continue prescribed Augmentin and to complete full course. Patient will be discharged with a [place] starter pack. I advised her to follow-up with a dentist. Patient will be discharged in stable condition with follow-up to dentist/PCP. Return parameters were discussed. Patient expressed understanding and agreement with care plan. Undiagnosed new problem with uncertain prognosis? @ -No Drug Therapy requiring intensive monitoring for toxicity (Heparin, Nitro, Insulin, Cardizem)? @ -No Were any procedures done? @ -No Diagnosis/symptom? @ -Dental abscess Acute, or Chronic, or Acute on Chronic? @ -Acute Uncomplicated (without systemic symptoms) or Complicated (systemic symptoms)? @ -Uncomplicated Side effects of treatment? @ -No Exacerbation, Progression, or Severe Exacerbation? @ -No Poses a threat to life or bodily function? How? (Chest pain, [place], [place], pneumonia, PE, COPD, DKA, ARF, appy, cholecystitis, CVA, Diverticulitis, Homicidal, Suicidal, threat to staff... and all critical care pts) @ -Possibly if infection spreads can lead to sepsis. Disposition Clinical Impression: Dental abscess Disposition: HOME SELF-CARE Condition: Stable Instructions (If sedation given, give patient instructions): Dental Abscess (ED) Additional Instructions: Please follow-up with a dentist in the next 1-2 days. Please continue to take Augmentin as prescribed. Please return to the ER with any worsening/change symptoms or new concerns. Is patient prescribed a controlled substance at d/c from ED?: No Referrals: None,Stated [Primary Care Provider] - 1-2 days Trey Vela DDS [STAFF PHYSICIAN] - 1-2 days Linda Duncan DDS [STAFF PHYSICIAN] - 1-2 days Time of Disposition: 13:06
== END 2023-04-17 13:15 | disposition home or self-care (01) ==
LOC: EC 12:48
DX: K04.7 Periapical abscess without sinus (principal); F17.200 Nicotine dependence, unspecified, uncomplicated; Z86.59 Personal history of other mental and behavioral disorders
CPT/HCPCS: 99282